=== PATIENT | male | born 1965 | race Caucasian/White ===

== ENCOUNTER 2016-07-22 12:35 | Emergency (ER) | payer MEDICARE ==
[~2016-07-22] VITALS: Ht 185.4 cm; Wt 118.2 kg
[2016-07-22 12:38] VITALS: BP 157/100; PULSE 87; RESP 18; O2SAT 95
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
== END 2016-07-22 15:02 | disposition home or self-care (01) ==
LOC: SED 12:35
DX: M54.9 Dorsalgia, unspecified (principal); G89.29 Other chronic pain; J45.909 Unspecified asthma, uncomplicated; Z76.0 Encounter for issue of repeat prescription; Z79.891 Long term (current) use of opiate analgesic; Z98.890 Other specified postprocedural states; Z88.0 Allergy status to penicillin; Z88.2 Allergy status to sulfonamides